=== PATIENT | female | born 1945 | race Caucasian/White ===

== ENCOUNTER 2017-04-19 08:54 | Day surgery (SDC) | payer MEDICARE, BC ==
[~2017-04-19] VITALS: Ht 165.1 cm; Wt 145.5 kg
[~2017-04-19 08:54] MED LIST: ALKA-SELTZER PO; ASPIRIN EC81 MG PO; BENICAR HCT 40-1 TAB; BENICAR HCT 40-1 TAB PO; FLOVENT DI50 MCG/DIS; PERCOCET 5-3251 TAB PO; POTASSIUM99 M1 PO; RELIEF NS; VITAMIN D31000 UNIT PO; VITAMIN D5000 UNIT PO; ZOCOR40 MG PO
[2017-04-19 10:42] VITALS: BP 159/74; Ht 165.1 cm; Wt 145.5 kg
[2017-04-19] MEDS ORDERED: DIOVAN HCT 320/1 TA2 PO (10:53)
[2017-04-19] MEDS ORDERED: NORVASC2.5 MG PO (10:54)
[2017-04-19] MEDS ORDERED: CALCIUM 600 +1 EAC3 PO (10:56)
[2017-04-19] MEDS ORDERED: VITAMIN D2000 UNIT PO (10:59)
[2017-04-19 11:01] LABS: BASOPHILS 0.2 % (0-2); IMMATURE GRANULOCYTES 0.3 % (0-5); LYMPHOCYTES 14.8 % (15-50); MCH 28.8 pg (26.0-34.0); MCHC 32.6 g/dL (31.0-37.0); MCV 88.5 fL (80.0-100.0); MEAN PLATELET VOLUME 9.9 fL (7.4-10.4); MONOCYTES 9.2 % (2-11); NEUTROPHILS 74.5 % (40-80); PLATELET COUNT 264 10x3/uL (130-400); RBC 4.86 10x6/uL (4.00-5.40); RDW 14.2 % (11.5-14.5); WBC 10.8 10x3/uL (4.8-10.8)
[2017-04-19 11:35] LABS: ANION GAP 15.6 mmol/L (8-16); CALCIUM 9.6 mg/dL (8.5-10.1); CARBON DIOXIDE 25.8 mmol/L (21.0-32.0); POTASSIUM - SERUM 3.4 mmol/L (3.5-5.1)
--- NOTE | 2017-04-19 13:14 | NUR ---
1250- FULL LIQUID TRAY PROVIDED DAUGHTER AT BEDSIDE PT SITTING UP IN BED.
--- NOTE | 2017-04-19 15:57 | OP ---
PATIENT NAME: LUX WESLEY MEDICAL RECORD: [id number] :49 LOCATION:[facility] ADMISSION DATE: SURGEON: JANE VERA DO DATE OF OPERATION: 04/19/2017 PROCEDURE: Colonoscopy with hot forceps polypectomy. INDICATIONS FOR PROCEDURE: History of colon polyps and family history positive for cancer of the gastrointestinal tract in her grandfather. SCOPE: Olympus video pediatric colonoscope. MEDICATIONS: Propofol 600 mg IV per anesthesia. WITHDRAWAL TIME: 10 minutes. ESTIMATED BLOOD LOSS: Minimal. COMPLICATIONS: None. FINDINGS: Informed consent was given. The patient was made comfortable with the above medication. After reaching an adequate level of sedation by slow IV push, the patient was placed on her left side. A digital rectal examination was performed and was normal. The endoscope was then advanced under direct visualization through the rectum to the cecum, with visualization of the appendiceal orifice and ileocecal valve. Scope was slowly withdrawn and mucosa was carefully examined. There were 2 polyps visualized on this examination. Both were benign and sessile appearing and located in the descending colon. It measured approximately 5 mm in diameter. Both were removed with hot forceps polypectomy and completely retrieved. Retroflexion was performed in the rectum with a normal appearance. The endoscope was then withdrawn from the patient. The patient tolerated the procedure well and there were no complications. IMPRESSION: Two descending colon polyps, as described above, both removed with hot forceps. PLAN AND RECOMMENDATIONS: 1. Discharge home when recovery parameters are met. 2. Continue current diet. 3. Continue current medications. 4. Recall colonoscopy will be dependent on results of pathology from the polyps. I anticipate a recall in 3 or 5 years based on the pathology. TRANSINT:[id number] Voice Confirmation ID: [id number] DOCUMENT ID: [id number] JANE VERA DO at 1557 CC: [id number] DICTATION DATE: 04/19/17 1252 PHOTOGRAMMETRY AIRPLANE PILOT: 04/19/17 1533 [facility] 04/19/17 [place] [id number]
== END 2017-04-19 14:02 | disposition home or self-care (01) ==
LOC: D.OPS 08:54
PROVIDERS: Anesthesiology
DX: D12.4 Benign neoplasm of descending colon (principal); I10 Essential (primary) hypertension; G47.30 Sleep apnea, unspecified; E66.01 Morbid (severe) obesity due to excess calories; Z68.43 Body mass index [BMI] 50.0-59.9, adult

== ENCOUNTER → 2018-04-12 21:39 | Outpatient (CLI) | payer MEDICARE, BC ==
[2017-04-19 10:42] VITALS: BMI 53.3
[~2018-04-12 21:39] MED LIST changes: +CALCIUM 600 +1 EAC3 PO; +DIOVAN HCT 320/1 TA2 PO; +NORVASC2.5 MG PO; +VITAMIN D2000 UNIT PO
== END | disposition home or self-care (01) ==
LOC: D.MAMMO 10:15
DX: Z12.31 Encounter for screening mammogram for malignant neoplasm of breast (principal)

== ENCOUNTER 2018-05-05 08:00 | Outpatient (CLI) | payer MEDICARE, BC ==
[2017-04-19 10:42] VITALS: BMI 53.3
== END 2018-05-05 09:00 | disposition home or self-care (01) ==
LOC: D.MAMMO 08:00
DX: R92.8 Other abnormal and inconclusive findings on diagnostic imaging of breast (principal)